=== PATIENT | male | born 1995 | race African-American/Black ===

== ENCOUNTER 2017-12-10 03:57 | Emergency (ER) | payer SELFPAY ==
[~2017-12-10] VITALS: Ht 185.4 cm; Wt 70.0 kg
[2017-12-10] MEDS ORDERED: OXYcodone/APAP 10/325MG TABLET ONE (04:19)
[2017-12-10] MEDS ORDERED: DIPH,PERTUSS(ACELL),TET VAC/PF 0.5 ML IM-VACC ONE ×2 (04:19→04:30)
[2017-12-10] MEDS ORDERED: KETOROLAC 30 MG/1 ML ONE (04:19)
[2017-12-10] MEDS ORDERED: OXYcodone/APAP 10/325MG TABLET PO ONE (04:30)
[2017-12-10] MEDS ORDERED: KETOROLAC 30 MG/1 ML IM ONE (04:30)
[2017-12-10 06:44] VITALS: BP 134/82
== END 2017-12-10 06:46 | disposition home or self-care (01) ==
LOC: ED 06:40
DX: S82.841A Displaced bimalleolar fracture of right lower leg, initial encounter for closed fracture (principal); M25.531 Pain in right wrist; M54.5 Low back pain; W17.89XA Other fall from one level to another, initial encounter; Y93.39 Activity, other involving climbing, rappelling and jumping off; Y92.098 Other place in other non-institutional residence as the place of occurrence of the external cause; Y99.8 Other external cause status
CPT/HCPCS: 29515; 72110; 90715; 96372; 99284

== ENCOUNTER 2018-04-04 17:06 | Emergency (ER) | payer MEDICAID ==
[~2018-04-04] VITALS: Ht 188 cm; Wt 72.0 kg
[2018-04-04] MEDS ORDERED: MAALOX/HYOSCYAMINE/LIDOCAINE 45 ML BTL ONE (17:36)
[2018-04-04] MEDS ORDERED: MAALOX/HYOSCYAMINE/LIDOCAINE 45 ML BTL PO ONE (18:00)
[2018-04-04 18:13] LABS: BASOPHILS # (AUTO) 0.02 x10^3/uL (0-0.1); BASOPHILS % (AUTO) 0 % (0-1); EOSINOPHILS # (AUTO) 0.12 x10^3/uL (0-0.4); EOSINOPHILS % (AUTO) 2 % (1-7); LYMPHOCYTES # (AUTO) 1.62 x10^3/uL (1-3.4); LYMPHOCYTES % (AUTO) 23 % (22-44); MD NO; MEAN CORPUSCULAR HEMOGLOBIN 33.1 pg (27.5-34.5); MEAN CORPUSCULAR HGB CONC 34.2 g/dL (33.2-36.2); MEAN CORPUSCULAR VOLUME 96.8 fL (81-97); MEAN PLATELET VOLUME 7.5 fL (7.4-10.4); MONOCYTES # (AUTO) 0.43 x10^3/uL (0.2-0.8); MONOCYTES % (AUTO) 6 % (2-9); NEUTROPHILS % (AUTO) 69 % (42-75); PLATELET COUNT 314 x10^3/uL (130-400); RED BLOOD COUNT 4.73 x10^6/uL (4.38-5.82); RED CELL DISTRIBUTION WIDTH 12.7 % (9.4-14.8)
[2018-04-04 18:20] LABS: ALBUMIN 3.6 g/dL (3.4-5.0); ANION GAP 7 mmol/L (5-15); CALCIUM 8.9 mg/dL (8.5-10.1); CHLORIDE 107 mmol/L (98-107)
[2018-04-04 18:24] VITALS: BP 113/72
[2018-04-04 18:24] LABS: ALANINE AMINOTRANSFERASE 24 U/L (12-78); ALKALINE PHOSPHATASE 74 U/L (45-117); BILIRUBIN,TOTAL 1.2 mg/dL (0.2-1.0); CREATININE 0.93 mg/dL (0.7-1.3); TOTAL PROTEIN 6.3 g/dL (6.4-8.2)
[2018-04-04 18:33] LABS: CULTURE INDICATED? NO; MICROSCOPIC NOT IND
== END 2018-04-04 19:31 | disposition home or self-care (01) ==
LOC: ED 18:46
DX: K29.00 Acute gastritis without bleeding (principal)
CPT/HCPCS: 36415; 74022; 80053; 81003; 83690; 85025; 93005; 99285

== ENCOUNTER 2019-06-29 17:26 | Emergency (ER) | payer MEDICAID, OTHER ==
[~2019-06-29] VITALS: Ht 185.4 cm; Wt 75.2 kg
[2019-06-29 18:18] LABS: BASOPHILS # (AUTO) 0.01 x10^3/uL (0-0.1); BASOPHILS % (AUTO) 0 % (0-1); EOSINOPHILS # (AUTO) 0.18 x10^3/uL (0-0.4); EOSINOPHILS % (AUTO) 2 % (1-7); LYMPHOCYTES # (AUTO) 1.98 x10^3/uL (1-3.4); LYMPHOCYTES % (AUTO) 22 % (22-44); MD NO; MEAN CORPUSCULAR HEMOGLOBIN 32.8 pg (27.5-34.5); MEAN CORPUSCULAR HGB CONC 33.8 g/dL (33.2-36.2); MEAN CORPUSCULAR VOLUME 97.1 fL (81-97); MEAN PLATELET VOLUME 7.6 fL (7.4-10.4); MONOCYTES # (AUTO) 0.43 x10^3/uL (0.2-0.8); MONOCYTES % (AUTO) 5 % (2-9); NEUTROPHILS # (AUTO) 6.25 x10^3/uL (1.8-6.8); NEUTROPHILS % (AUTO) 71 % (42-75); PLATELET COUNT 373 x10^3/uL (130-400); RED BLOOD COUNT 4.66 x10^6/uL (4.38-5.82); RED CELL DISTRIBUTION WIDTH 12.7 % (9.4-14.8)
[2019-06-29 18:24] LABS: RAPID INFLUENZA A Negative (Negative); RAPID INFLUENZA B Negative (Negative)
[2019-06-29 18:31] LABS: ALANINE AMINOTRANSFERASE 33 U/L (12-78); ALBUMIN 3.9 g/dL (3.4-5.0); ANION GAP 5 mmol/L (5-15); CALCIUM 8.9 mg/dL (8.5-10.1); CHLORIDE 107 mmol/L (98-107); CREATININE 0.95 mg/dL (0.7-1.3)
[2019-06-29 18:34] LABS: ALKALINE PHOSPHATASE 97 U/L (45-117); TOTAL PROTEIN 7.1 g/dL (6.4-8.2)
[2019-06-29 21:01] VITALS: BP 119/77
[2019-06-29] MEDS ORDERED: MAALOX/HYOSCYAMINE/LIDOCAINE 45 ML BTL ONE (22:17)
--- NOTE | 2019-06-29 22:19 | NUR ---
VERBAL ORDER RECEIVED FOR GI COCKTAIL. PT MEDICATED PER ORDER
--- NOTE | 2019-06-29 22:25 | NUR ---
DC EDUCATION PROVIDED, PT DEMONSTRATES UNDERSTANDING. PT AMBULATED STEADILY TO DC WITH RN.
[2019-06-29] MEDS ORDERED: MAALOX/HYOSCYAMINE/LIDOCAINE 45 ML BTL PO ONE (22:30)
== END 2019-06-29 22:26 | disposition home or self-care (01) ==
LOC: ED 22:20
DX: B34.9 Viral infection, unspecified (principal); R11.2 Nausea with vomiting, unspecified
CPT/HCPCS: 36415; 71046; 80053; 85025; 87081; 87400; 87880; 99284

== ENCOUNTER 2019-09-09 01:38 | Emergency (ER) | payer OTHER ==
[2019-09-09] MEDS ORDERED: ONDANSETRON 2MG/ML, 2ML ONE (01:48)
[2019-09-09] MEDS ORDERED: MORPHINE SULFATE 4 MG/ML, 1ML ONE (01:48)
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
== END 2019-09-09 05:11 | disposition short-term general hospital (02) ==
LOC: ED 04:51
DX: S72.401B Unspecified fracture of lower end of right femur, initial encounter for open fracture type I or II (principal); X58.XXXA Exposure to other specified factors, initial encounter; Y93.89 Activity, other specified; Y92.89 Other specified places as the place of occurrence of the external cause; Y99.8 Other external cause status
CPT/HCPCS: 99285